=== PATIENT | female | born 1950 | race Caucasian/White ===

== ENCOUNTER → 2017-10-23 | Outpatient (CLI) | payer MEDICARE ==
[~2017-10-23] MED LIST: AMOX500T10 PO; ASPI-1471 PO; AZIT-1 PO; BENZ200C15 PO; CALC-1 PO; CALC-515 PO; CALC-856 PO; CHOL10005 PO; CLAR-1 PO; DOCU-416 PO; ERGO400T9 PO; FLU60SYR30 IM ONLY; LACT1CAP6 PO; LEV125 PO; LEVO175T38 PO; LUBI24CA14 PO; MOM PO; OMEP-218 PO; PNEI IJ; RANI-366 PO; SULF-198 PO; [UNRECOGNIZED DRUG - CODE] PO
== END ==
LOC: LAB 11:34
PROVIDERS: ATTEND Emergency Medicine
DX: D75.1 Secondary polycythemia (principal); E03.9 Hypothyroidism, unspecified
CPT/HCPCS: 36415; 84443; 85014; 85018

== ENCOUNTER 2017-11-29 08:49 | Outpatient (RCR) | payer MEDICARE ==
[2017-11-29] MEDS ORDERED: ALBU8.5H IH (09:41)
[2017-11-29 14:00] VITALS: BP 136/84
--- NOTE | 2017-11-29 20:00 | ONCOLOGY HISTORY AND PHYSICAL ---
EVENT DATE: November 29, 2017 REFERRING PROVIDER Juancarlos Perdomo MD REASON FOR CONSULTATION History of stage II papillary thyroid cancer. CHIEF COMPLAINT The patient feels well today. 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 She has been followed since that time for the most part in endocrinology, most recently by Dr. Robbins in endocrinology in [facility]. The patient is here today at the request of Dr. Perdomo to discuss ongoing management of her thyroid medication/TSH suppression. The patient is concerned about where she needs to keep her TSH for ongoing suppression in that she has been doing quite a bit of reading, as recommended by Dr. Robbins in endocrinology. A little less than one year ago, a discussion had taken place with Dr. Robbins about having her goal range of TSH between 0.5 and 2.0. The patient brings a printout in of her recent TSH readings, but notes that these have been performed at different laboratories. She feels well physically. She has noticed no new lumps or bumps in the neck. She denies shortness of breath, chest pain and cough. He energy level tends to be good. Her appetite is good as well and her weight has been stable. PAST MEDICAL HISTORY 1. Thyroid cancer, as above. 2. History of osteopenia, resolved. 3. History of gastroesophageal reflux disease, resolved. 4. Chronic constipation. 5. History of mild polycythemia per record. PAST SURGICAL HISTORY 1. Status post tonsillectomy, remote. 2. 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 3. History of section x3. 4. History of tubal ligation. 5. History of carpal tunnel surgery. 6. History of thyroid surgery, as above. CURRENT MEDICATIONS 1. Amitiza 2. Levothyroxine. 3. Calcium/vitamin D. 4. Vitamin D supplement. 5. Baby aspirin. ALLERGIES LATEX. She also reports being sensitive to CLOROX. FAMILY HISTORY There is a family history of Alzheimer's disease in her father as well as coronary artery disease. There is a history of hyperlipidemia, hypertension. There is also a history of reported non-small cell lung cancer in her mother. SOCIAL HISTORY Patient is a former smoker. She occasionally drinks alcohol but there is no history of alcohol abuse. There is no history of illicit drug use. VITAL SIGNS Temperature 98.9, blood pressure 136/84, heart rate is 68, respirations 16, oxygen saturation 95% on room air, weight 70.8 kg. PHYSICAL EXAMINATION [*] GENERAL: Patient is alert and oriented x3, in no apparent distress, sitting in the exam room chair. She appears quite healthy. She is interactive and pleasant. HEENT: Anicteric sclerae. NEUROLOGIC: Grossly nonfocal. Gait is normal. EXTREMITIES: No clubbing or cyanosis. There is no erythema or tenderness. The rest of physical exam is deferred today for discussion. LABORATORY DATA Laboratory studies are reviewed per [facility] and outside records. IMAGING None today. PATHOLOGY From thyroidectomy and neck dissection performed in 1983 (reviewed today): Biopsy of right neck mass reveals evidence of well-differentiated papillary carcinoma of thyroid origin, metastatic cervical lymph node. Thyroidectomy and neck specimen from February 02, 1984 reveals two separate foci of papillary carcinoma in the thyroid gland. There is a background of multinodular goiter and thyroiditis. Carcinoma was noted in a total of three lymph nodes. One is a cervical lymph node on the right, submitted initially, and there are two positive lymph nodes from the paratracheal tissues. ASSESSMENT History of stage II well-differentiated papillary thyroid carcinoma diagnosed in 1983. I had a very good visit with Ms. Lynne today. Symptomatically, she continues to do remarkably well. We spent a good deal of time today discussing prior visits that she has had with Dr. Robbins in endocrinology and, as discussed, I would agree with recommendations made by Rosendo Koo. We spent time today reviewing NCCN guidelines, including staging of papillary thyroid carcinoma. We were able to pour over pathology records that she was able to find and I have made gina of these for the medical record. She did appear to have two positive paratracheal lymph nodes at the time of her surgery. She had undergone radioactive iodine therapy as well. Notes would indicate that she has had serum thyroglobulin levels and these have been undetectable. Her TSH has also been followed while on levothyroxine. We moved on to discuss the chronology of her cancer history and that it has been almost 34 years since the time of her initial diagnosis without any evidence of recurrence of her thyroid cancer. Her prognosis is excellent and she will need to remain on thyroid replacement therapy. She does not tend to feel any better or worse in the somewhat tight range of TSH that has been maintained but, again, I would agree with guidelines as discussed with Dr. Robbins previously. We moved on to discuss the importance of regular physical activity and of good nutrition. She understands both of these. In total, aside from ongoing TSH suppression with levothyroxine, I do think it would be reasonable to have her get thyroglobulin levels checked once a year and obviously to call if she notices any new symptoms, in particular lumps and bumps in the neck, any shortness of breath, productive cough or chest pain. The patient had multiple insightful and appropriate questions for me today and I believe I answered all of her questions to her satisfaction. I would be more than happy to visit with her again in the future if there are questions or concerns. TARAS
[2017-12-11] MEDS ORDERED: AMOX-559 PO (11:00)
[2017-12-26] MEDS ORDERED: FLU180SY11 IM (13:45)
== END 2018-01-24 10:01 | disposition home or self-care (01) ==
LOC: ONC 08:49
PROVIDERS: ATTEND Internal Medicine Medical Oncology
DX: Z85.850 Personal history of malignant neoplasm of thyroid (principal); Z87.891 Personal history of nicotine dependence
CPT/HCPCS: 99202

== ENCOUNTER → 2018-02-24 | Outpatient (CLI) | payer MEDICARE ==
[~2018-02-24] MED LIST changes: +ALBU8.5H IH; +AMOX-559 PO; +FLU180SY11 IM
== END ==
LOC: RESP 19:58
PROVIDERS: ATTEND Emergency Medicine
DX: G47.33 Obstructive sleep apnea (adult) (pediatric) (principal)

== ENCOUNTER → 2018-04-05 | Outpatient (CLI) | payer MEDICARE | LOC: LAB 08:27 | PROVIDERS: ATTEND Emergency Medicine | DX: Z85.850 Personal history of malignant neoplasm of thyroid (principal) | CPT/HCPCS: 36415; 84443; 86800 ==

== ENCOUNTER → 2018-06-02 | Outpatient (CLI) | payer MEDICARE | LOC: RESP 20:53 | PROVIDERS: ATTEND Emergency Medicine | DX: G47.33 Obstructive sleep apnea (adult) (pediatric) (principal) ==

== ENCOUNTER → 2018-08-22 | Outpatient (CLI) | payer MEDICARE ==
[2018-08-22 10:23] LABS: PLATELET COUNT, AUTOMATED 226 K/uL (150-450)
[2018-08-22 10:53] LABS: LDL CHOLESTEROL 113 mg/dl
== END ==
LOC: LAB 10:10
PROVIDERS: ATTEND Emergency Medicine
DX: E03.9 Hypothyroidism, unspecified (principal); M85.80 Other specified disorders of bone density and structure, unspecified site; K59.09 Other constipation; D75.1 Secondary polycythemia; Z85.850 Personal history of malignant neoplasm of thyroid
CPT/HCPCS: 36415; 82040; 82247; 82306; 82310; 82374; 82435; 82465; 82565; 82947; 83718; 84075; 84132; 84155; 84295; 84432; 84443; 84450; 84460; 84478; 84520; 85025; 86800

== ENCOUNTER → 2018-08-28 | Outpatient (CLI) | payer MEDICARE ==
[~2018-08-28] MED LIST changes: -RANI-366 PO; +RANI-54 PO
--- NOTE | 2018-08-29 11:11 | RADIOLOGY IMAGING REPORT ---
FACILITY: [facility] - [place] PATIENT NAME: GARCIA HINOJOSA : [id number] MR: [id number] V: [id number] EXAM DATE: ORDERING PHYSICIAN: CHUCK GARCES TECHNOLOGIST: Gillian Lebron PROCEDURE: BILATERAL DIGITAL SCREENING MAMMOGRAM WITH CAD ASSISTED INTERPRETATION & 3D TOMOSYNTHESIS REASON FOR STUDY: Screening. FAMILY HISTORY OF BREAST CANCER: Maternal aunt and maternal cousin. Family history of ovarian cancer maternal grandmother. BREAST PROCEDURES/TREATMENTS: None. COMPARISON: Prior mammograms 02/20/17, 08/27/15, 08/19/14, 07/24/14, 07/19/13, 07/18/12. VIEWS OBTAINED: 2D & 3D full field CC & MLO. BREAST DENSITY: There are scattered areas of fibroglandular density throughout the breasts. MAMMOGRAM FINDINGS: There is a focal asymmetry in the lateral portion of the Left breast in the middle 1/3 for which Spot compression view is recommended. IMPRESSION: BIRADS 0: Incomplete. Additional views of the Left breast recommended as described. DIAGNOSTIC CATEGORY 0--INCOMPLETE: NEED ADDITIONAL IMAGING EVALUATION. RECOMMENDATIONS: ADDITIONAL MAMMOGRAPHIC VIEWS REQUIRED: LEFT BREAST. Dictated by: Uma Pardo M.D. on 08/28/2018 at 17:37 Transcribed by: DAISY on 08/29/2018 at 8:42 Approved by: Uma Pardo M.D. on 08/29/2018 at 11:10 [facility]
== END ==
LOC: MAMO 00:16
PROVIDERS: ATTEND Emergency Medicine
DX: R92.2 Inconclusive mammogram (principal); Z80.3 Family history of malignant neoplasm of breast
CPT/HCPCS: 77063; 77067

== ENCOUNTER → 2018-08-29 | Outpatient (CLI) | payer MEDICARE ==
--- NOTE | 2018-08-29 10:26 | RADIOLOGY IMAGING REPORT ---
FACILITY: [facility] PATIENT NAME: Ashley Lynne : 1950 MR: [id number] V: [id number] EXAM DATE: ORDERING PHYSICIAN: CHUCK GARCES TECHNOLOGIST: [place] [facility] [place]: Ashley Lynne : 1950 Visit/Account:[id number] Date of Sevice: 08/29/2018 HIP RIGHT Indication: Pain when walking Comparison: None available Findings: There is no acute fracture or dislocation of the right hip. Mild degenerative changes within the right hip with mild subchondral sclerosis and cystic changes. IMPRESSION: 1. No acute osseous abnormality right hip. Report Dictated By: Ervin Coreas MD at 08/29/2018 10:20 AM Report E-Signed By: Ervin Coreas MD at 08/29/2018 10:21 AM WSN:[email or web address]
== END ==
LOC: RAD 08:50
PROVIDERS: ATTEND Emergency Medicine
DX: M16.11 Unilateral primary osteoarthritis, right hip (principal)

== ENCOUNTER → 2018-08-31 | Outpatient (CLI) | payer MEDICARE ==
--- NOTE | 2018-09-03 14:05 | RADIOLOGY IMAGING REPORT ---
FACILITY: [facility] PATIENT NAME: GARCIA HINOJOSA : [id number] MR: [id number] V: [id number] EXAM DATE: [id number] ORDERING PHYSICIAN: CHUCK GARCES TECHNOLOGIST: Gillian Lebron PROCEDURE:LEFT DIGITAL MAMMOGRAM DIAGNOSTIC WITH CAD ASSISTED INTERPRETATION & 3D TOMOSYNTHESIS REASON FOR STUDY: Further evaluation. FAMILY HISTORY OF BREAST CANCER: Maternal aunt age 80, maternal cousin and family history of ovarian cancer maternal grandmother age 60. BREAST PROCEDURES/TREATMENTS: None. COMPARISON STUDIES: 08/28/18, 02/20/17, 08/27/15, 08/19/14, 07/24/14, 07/19/13, 07/21/12. VIEWS OBTAINED: 2D & 3D Spot compression view in the Left CC projection. BREAST DENSITY: MAMMOGRAM FINDINGS: The focal asymmetry seen on the Left CC view on the recent mammogram appears compressible and apparently represented a summation shadow. There was no demonstration of malignant appearing mass or calcification in the Left breast. DIAGNOSTIC CATEGORY 1--NEGATIVE. RECOMMENDATIONS: ROUTINE MAMMOGRAM AND CLINICAL EVALUATION. IMPRESSION: BIRADS 1: Negative. Dictated by: Uma Pardo M.D. on 08/31/2018 at 15:26 Transcribed by: DAISY on 09/03/2018 at 11:31 Approved by: Uma Pardo M.D. on 09/03/2018 at 14:04 [facility]
== END ==
LOC: MAMO 00:50
PROVIDERS: ATTEND Emergency Medicine
DX: R92.2 Inconclusive mammogram (principal)
CPT/HCPCS: 77061; 77065

== ENCOUNTER 2018-09-12 15:30 | Outpatient (RCR) | payer MEDICARE ==
--- NOTE | 2018-09-04 17:00 | PT INITIAL EVALUATION ---
MEDICAL DIAGNOSIS: chronic neck pain TREATMENT DIAGNOSIS: same DATE OF ONSET: 09/05/15 SUBJECTIVE: Ashley Lynne presents to physical therapy with complaints of popping and cracking that is not painful that started approximately 3 years ago. She reports that she has never had neck pain but does feel some tightness on the back side of her neck if life does get stressful. She denies any current pain or tightness. She reports that she injured her shoulder about 4 years ago and states that water aerobics has helped rehabilitate her shoulder to where she has gained the motion, strength, and mobility back. She reports that she does not feel limited by her neck in her every day life. REHAB PROBLEM LIST: Decreased ROM Decreased Strength PREVIOUS MEDICAL HISTORY: See EMR OCCUPATION: Retired RN OBJECTIVE: Posture: She demonstrated minimal forward head, minimal rounded shoulders, minimal increase in thoracic kyphosis, and decreased lumbar lordosis. ROM: Cervical AROM: flexion: minimal restriction with muscular tightness. extension: minimal restriction with muscular tightness. R sidebending: NIL with muscular tightness. L sidebending: NIL with muscular tightness. Protrusion: NIL with muscular tightness. restriction: NIL with normal end feel. R rotation: NIL with normal end feel. L rotation: minimal restriction with muscular tightness Strength: L shoulder: flexion: 4+/5. Scaption: 4/5 with some discomfort. Abduction: 4/5 with some discomfort. ER and IR: 4+/5. R shoulder: flexion, abduction, scaption, ER, and IR: 4+/5 without any pain or discomfort Palpation: She was not TTP Special Tests: Repeated RET: stretch during test and same following test but increased cervical AROM to her L rotation. Mobility: Independent Gait: She demonstrated normal gait mechanics and no significant gait mechanics were noted ASSESSMENT: Ashley will benefit from skilled physical therapy addressing the listed impairments to return to prior level of function within the next 3 sessions. Short Term Goals 3 sessions: Pt will demonstrate independence with her home exercise program to improve function and QOL. 3 sessions: Pt will demonstrate full cervical AROM with abolished muscular tightness surrounding the cervical spine to improve function and QOL. Patient's Goals decrease popping PLAN: Patient to be seen for Manual Therapy/STM/MET Strengthening/condition Range of Motion Spinal Stabilization Stretching Closed Chain Program Posture/Body mechanics Home Exercise Program Therapeutic Activities X 3 sessions If you have any questions, comments, or concerns about this report or plan, please contact me at . Thank you, Taurus Meza PT, DPT STEPHANIED
--- NOTE | 2018-10-02 13:12 | PT PLAN OF CARE ---
Physician: Alicia Perdomo MD Patient is being seen: 1-2x/week Therapist: Taurus Meza, PT, DPT Medical Diagnosis: chronic neck pain Treatment Diagnosis: same Date of Onset: 09/05/15 Date of Initial Evaluation: 09/04/18 Date patient was last seen: 09/12/18 Number of treatments: 2 Number of cancellations/No shows: 0 INTERVENTIONS: Manual Therapy/STM/MET Strengthening/condition Range of Motion Spinal Stabilization Stretching Closed Chain Program Posture/Body mechanics Home Exercise Program Therapeutic Activities GOALS: 3 sessions: Pt will demonstrate independence with her home exercise program to improve function and QOL. MET 3 sessions: Pt will demonstrate full cervical AROM with abolished muscular tightness surrounding the cervical spine to improve function and QOL. MET PATIENT'S GOAL: decrease popping Status of Patient's Goals: Progress well Patient Compliance: Good Prognosis: Good Reasons for continuing therapy: This is a discharge note for Ashley Lynne. She reports that she is doing well. She reports that she feels more confident and has less stiffness with her neck. She reports that she feels like she has more mobility of her cervical spine. She has a confirmed posterior derangement that is progressing well with her specific exercise resulting in increased cervical AROM in all directions and decreased pain and improved end feels. She is independent with her home exercise program, educated on prevention and reoccurrence, and will be discharge. Posture: She demonstrated minimal forward head, minimal rounded shoulders, minimal increase in thoracic kyphosis, and decreased lumbar lordosis. ROM: Cervical AROM: flexion: NIL with muscular tightness. extension: NIL with muscular tightness. R sidebending: NIL with muscular tightness. L sidebending: NIL with muscular tightness. Protrusion: NIL with muscular tightness. retriction: NIL with normal end feel. R rotation: NIL with normal end feel. L rotation: NIL with muscular tightness Strength: L shoulder: flexion: 4+/5. Scaption: 4/5 with some discomfort. Abduction: 4/5 with some discomfort. ER and IR: 4+/5. R shoulder: flexion, abduction, scaption, ER, and IR: 4+/5 without any pain or discomfort Special Tests: Repeated RET: stretch during test and same following test but increased cervical AROM to her L rotation. Mobility: Independent If you have any questions, please contact me at [phone]. Thank you, Taurus Meza, PT, DPT MTDD
== END 2018-09-12 18:00 | disposition home or self-care (01) ==
LOC: PT 15:30
PROVIDERS: ATTEND Emergency Medicine
DX: M54.2 Cervicalgia (principal)
CPT/HCPCS: 97161